=== PATIENT | female | born 2005 | race Caucasian/White ===

== ENCOUNTER 2024-10-09 17:41 | Emergency (ER) | payer OTHER, SELFPAY | END 2024-10-09 18:21 | disposition home or self-care (01) | LOC: BURERS 17:41 | DX: L03.211 Cellulitis of face (principal); L23.9 Allergic contact dermatitis, unspecified cause | CPT/HCPCS: 99283 ==

== ENCOUNTER 2025-06-29 13:46 | Emergency (ER) | payer SELFPAY ==
[2025-06-29] MEDS ORDERED: Ibuprofen 200 MG TAB ONE (14:07)
== END 2025-06-29 14:35 | disposition home or self-care (01) ==
LOC: BURERS 13:46
DX: J02.9 Acute pharyngitis, unspecified (principal); F17.290 Nicotine dependence, other tobacco product, uncomplicated
CPT/HCPCS: 87081; 87430; 99283